=== PATIENT | male | born 1990 | race Caucasian/White ===

== ENCOUNTER 2020-01-03 13:33 | Outpatient (CLI) | payer MEDICARE, SELFPAY ==
--- NOTE | 2020-01-03 | XR_ITS ---
WS: [id number] FINGER LEFT TECHNIQUE: 3 views of the left First finger CLINICAL INFORMATION: THUMB PAIN COMPARISON: None. FINDINGS: Left thumb is normal in appearance. No acute fractures. XR/XR finger LT min 2V [id number] IMPRESSION: Normal left thumb
== END 2020-01-03 13:34 | disposition home or self-care (01) ==
LOC: RADOUTREAD 15:37
PROVIDERS: Visit Provider Physician Assistant
DX: Z76.89 Persons encountering health services in other specified circumstances (principal)

== ENCOUNTER 2023-08-27 08:33 | Outpatient (CLI) | payer MEDICARE, SELFPAY ==
--- NOTE | 2023-08-27 | ECG_ITS ---
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 Interpretive Statements NAME OF STUDY: EXERCISE SESTAMIBI STRESS TEST INDICATION: [Chest Pain, ] EXERCISE DATA: The patient was exercised by Shubham protocol. Baseline heart rate was 75 beats per minute. Baseline blood pressure was 198/131 millimeters of mercury. Target heart rate was 157 beats per minute. Maximum heart rate achieved was 166 which was 105% of the target heart rate. Maximum blood pressure was 216/134 millimeters of mercury. Total exercise time was 5 minutes and 6 seconds. Maximum METs achieved was 7. The reason for ending the test was completion of protocol. The patient complained of shortness of breath during the stress test, which then resolved at the end of the test. ELECTROCARDIOGRAM: BASELINE: Showed sinus rhythm, right bundle branch block, no significant ST-T changes at the baseline noted. [] EXERCISE: At the peak exercise level, [] No significant ST-T changes suggestive of ischemia noted. [] RECOVERY: During the recovery period, heart rate dropped appropriately. No significant ST-T changes in the recovery suggestive of ischemia noted. [] CONCLUSION: 1. Exercise capacity is fair 2. Heart rate response was appropriate 3. Blood pressure response was hypertensive 4. Symptoms not suggestive of ischemia. 5. Electrocardiogram portion of the stress test was not suggestive of ischemia however given baseline ekg finding of right bundle branch block sensitivity of exercise EKG is reduced. Electronically Signed On 09-01-2023 8:57:02 CDT by Yohan Robles M.D. [id number]
[2023-08-27 08:44] VITALS: BMI 51.0
--- NOTE | 2023-08-27 08:45 | NMCV_ITS ---
NM albert perf SPECT r/s* [id number] Rogelio Osborn Age: 33 Gender: M : 1990 Exam Date: 08/27/2023 09:48 Ordering Phys: Kiana Clark Technologist: RUDI Orlando Exam Location: [facility] Indications: CHEST PAIN STRESS TEST Please see separate stress test report in [employer] for full findings IMAGE PROTOCOL Rest/Stress 1 Exercise Day Radiopharmaceutical Dose (mCi) Administration Site Administered by Rest: Tc-99m 10.6 IV RUDI Castrejon Sestamidebora Stress:Tc-99m 33.0 IV RUDI Castrejon Sestamibi Rest: 27-Aug-2023 60 Discovery 630 Stress: 27-Aug-2023 30 Discovery 630 Radiopharmaceutical was injected at 85 % maximum heart rate. Images obtained in supine and prone position. SPECT RESULTS Technical Quality: Excellent Raw Data Analysis: Normal Image Corrections: No attenuation or motion correction applied Summed Stress Score: 4 Summed Rest Score: 1 Summed Difference Score: 4 PERFUSION FINDINGS There is a medium sized, mostly reversible perfusion defect noted in inferolateral wall. This is consistent with medium sized area of ischemia in left circumflex artery territory. FUNCTIONAL RESULTS (calculated via Gated SPECT) Stress Image LV EF (%): 51 Stress EDV (mL):189 TID: 0.95 Stress ESV (mL):93 FUNCTIONAL FINDINGS: There is normal left ventricular systolic function. IMPRESSIONS 1. Abnormal myocardial perfusion imaging with with medium sized area of ischemia seen in the left circumflex artery territory. 2. LV systolic function is normal Yohan Robles MD (Electronically Signed) Final Date: 31 August 2023 12:24 S
[2023-08-27] MEDS: metoprolol tartrate 1 mg/1 mL SDV 5 mL 5 MG IV (10:51)
[2023-08-27 11:38] VITALS: BP 178/90; PULSE 86
== END 2023-08-27 08:34 | disposition home or self-care (01) ==
LOC: CDL 08:34
PROVIDERS: PCP Physician Assistant; Visit Provider Physician Assistant
DX: R93.1 Abnormal findings on diagnostic imaging of heart and coronary circulation (principal); R07.9 Chest pain, unspecified
CPT/HCPCS: 36415; 78452; 93017; 96374; A9500; J3490

== ENCOUNTER → 2023-10-06 09:53 | Outpatient (BNVA) | payer MEDICARE, SELFPAY | PROVIDERS: PCP Physician Assistant; Referring Provider Physician Assistant; Visit Provider Internal Medicine Cardiovascular Disease | DX: R94.39 Abnormal result of other cardiovascular function study (principal); I10 Essential (primary) hypertension; E78.5 Hyperlipidemia, unspecified; E11.9 Type 2 diabetes mellitus without complications; Z79.84 Long term (current) use of oral hypoglycemic drugs; Z90.49 Acquired absence of other specified parts of digestive tract; Z96.21 Cochlear implant status | CPT/HCPCS: 99204 ==

== ENCOUNTER 2023-10-14 08:18 | Outpatient (CLI) | payer MEDICARE, SELFPAY ==
[2023-10-14] VITALS (17 sets, daily range): BP systolic 142–225; BP diastolic 73–138; PULSE 77–101; RESP 10–24; TEMP 36.8; O2SAT 96–100; BMI 51.5
--- NOTE | 2023-10-14 07:30 | XACV_ITS ---
Exam Room: 2 Ht: 178 cm Wt: 163 kg BSA: 2.93 m2 Gender: Male : 1990 Any Known Allergies: No known allergies Exam Priority: Routine Procedure(s): Procedure Description: Diagnostic procedure Procedure Description: Left Heart Catheterization Procedure Description: Left ventriculography Procedure Description: Coronary Angiography Diagnostic Cath Status: Elective Diagnostic Findings * Coronary angiography shows right dominance. * No disease noted in the short Left Main and right coronary artery. * Minor luminal irregularity noted in circumflex artery. * Medium calibre left anterior descending artery with distal 50% stenosis. Conclusions 1. Distal left anterior descending with 50% stenosis. 2. Normal left ventricular systolic function. Ejection fraction of 65%. Recommendations * Continue current medical management and risk factor modification. LV EDP: 27 mmHg Ventriculography Ejection Fraction: 65.0 % Pressures Phase:Rest AO : 145 / 121 ( 135 ) @ 9:32:00 AM 143 / 107 ( 126 ) @ 9:34:00 AM 151 / 111 ( 132 ) @ 9:37:00 AM 142 / 106 ( 125 ) @ 9:40:00 AM 196 / 112 ( 147 ) @ 9:48:00 AM 197 / 89 ( 135 ) @ 9:48:00 AM LV : 204 / -1 / 21 @ 9:47:00 AM 204 / 4 / 27 @ 9:48:00 AM 205 / 5 / 26 @ 9:48:00 AM Valves Phase:DefaultPhase AV : 9.0 @ 10:00:10 AM AV Mean Gradient: 28.0 @ 10:00:10 AM 28.0 @ 10:00:10 AM Clinical Evaluation EBL: 5mL-10mL Procedural Details Procedure Consent Obtained. Pre-Procedure Time Out. Identified patient by full name and date of as verbalized by the patient/guarantor. Does the consent match the physician's order: Yes. Accurate & Complete Informed Consent: Yes. Inpatient/Outpatient History & Physical on Chart: Yes. If H&P is completed, is and addenduem needed: No; If yes, is the addendum complete: N/A. Visualize and Verify Site with Patient/Guarantor: N/A. Relevant Radiology Images available: Yes. Pre-op teaching completed and patient verbalized understanding. The risks, benefits, and alternatives of sedation and/or procedure were discussed by physician. The patient agrees to continue. Procedure started. Current Diagnosis : Chest Pain. [facility] Clinical Fraility Score: 3: Managing Well. 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 Chest Pain Symptom Assessment: Atypical Angina. Correct patient, site and procedure confirmed by cath team. Current diagnosis: Chest Pain. PERRLA. Strong, equal hand laboratory animal caretaker bilaterally. Lungs clear x 5 lobes. IV Site on Arrival: 20 gauge in the left anticubital. IV Fluids: 0.9% NaCl at KVO. 0 mL infused prior to recyclable materials distributor. Pre Procedural Pulses: bilateral dorsalis pedis was 3+. Pre Procedural Pulses: bilateral posterior tibial was 3+. Pre Procedural Pulses: bilateral radial was 3+. Oxygen started at 2liters/min via nasal canula. right groin was prepped with chloroprep then draped in the usual sterile fashion. right radial was prepped with chloroprep then draped in the usual sterile fashion. Baseline sample Acquired. HR: 88 BPM. Physician arrived. Physician scrubbed in. Immediate Pre-Procedure Time Out. Correct Patient: Yes; Correct Procedure: Yes; Correct Site: Yes; Correct Patient Position: Yes; Correct Supplies: Yes; Dried Flammable Prep: Yes; Blood Products Available: N/A;. Lidocaine 1% infiltrated to the right radial. Arterial access obtained. A 5 ukrainian TIG catheter in over wire. Multiple views taken of left coronary artery. Physician review of cine films. Catheter redirected to the RCA. Multiple views taken of right coronary artery. Catheter removed over the exchange wire. A 5 ukrainian Angled Pig catheter in over wire. EDP Sample taken: LV 204/-2,21; HR: 97 BPM; SpO2: 100%. LV gram performed in LONGO @ 10 mL/second for a total of 30 mL. EDP Sample taken: LV 204/4,27; HR: 94 BPM; SpO2: 99%. Pullback taken: LV 205/5,26; AO 196/112(147); Mean: 28mmHg, Peak to Peak: 9mmHg, SEP: 8sec/min; HR: 95 BPM; SpO2: 100%. Catheter removed over the exchange wire. Physician scrubbed out. Dr. Nguyen called to review films. Dr. Nguyen arrived. A TR Band was successful obtaining hemostatsis at the Right Radial artery insertion site. Vital chart was stopped. Post Procedure: Pulses reassessed and unchanged. PERRLA. Strong, equal hand laboratory animal caretaker bilaterally. No VTE prophylaxis required. Medication's Wasted: Nitro = 49.8 mcg. Medication's Wasted: Lidocaine 1% = 3 mL. Medication's Wasted: Heparin = 1000 units. Total IV fluids: 38 mL. Complications: None. Estimated blood loss: 5mL-10mL. Responsiveness - Normal response to verbal stimuli; alert and oriented, PERRLA. Airway - Unaffected, no intervention required; spontaneous ventilation. Circulation: W/N/L, pulses unchanged. Nausea/Vomiting: No. Procedure completed. Patient transferred by wheelchair to CPRU. Access Site Site: Right Radial artery Sheath Size: 6 Fr Hemostasis Method: TR Band Hemostasis Success: Successful Procedure Medications Start: 9:19 AM Stop: 9:19 AM Medication: Hydralazine Amount: 20 mg Route: I.V. Start: 9:23 AM Stop: 9:23 AM Medication: Versed Amount: 1 mg Route: I.V. Start: 9:23 AM Stop: 9:23 AM Medication: Fentanyl Amount: 50 mcg Route: I.V. Start: 9:24 AM Stop: 9:24 AM Medication: Versed Amount: 1 mg Route: I.V. Start: 9:28 AM Stop: 9:28 AM Medication: Nitrogylcerin Amount: 200 mcg Route: I.A. Start: 9:28 AM Stop: 9:28 AM Medication: Fentanyl Amount: 50 mcg Route: I.V. Start: 9:30 AM Stop: 9:30 AM Medication: Heparin Amount: 5000 units Route: I.V. Start: 9:34 AM Stop: 9:34 AM Medication: Versed Amount: 1 mg Route: I.V. Start: 9:50 AM Stop: 9:50 AM Medication: Versed Amount: 1 mg Route: I.V. I, the attending physician, have reviewed and verified all procedure medications. Yes, all medications given per verbal order History/Risk Factors Hypertension: Yes Dyslipidemia: Yes Peripheral Arterial Disease (PAD): No Myocardial Infarction (AK): No Obesity: Yes Renal Disease: No Tobacco Use: Never Prior Interventions PCI: No CABG: No Valve Surgery: No Report Signatures Finalized by Gemini Henderson MD on 10/26/2023 10:48 AM
[2023-10-14] MEDS: diphenhydrAMINE 50 mg Capsule PO (08:30)
[2023-10-14 08:41] LABS: Basophils # 0.1 10^3/uL (0.0-0.1); Basophils % 0.5 %; Eosinophils # 0.4 10^3/uL (0.0-0.8); Eosinophils % 3.8 %; Hematocrit 49.6 % (37-53); Lymphocytes # 2.7 10^3/uL (0.8-4.8); Lymphocytes % 23.8 %; Mean Corpuscular HGB Conc 33.1 g/dL (30-55); Mean Corpuscular Hemoglobin 26.8 pg (27-33); Monocytes # 0.9 10^3/uL (0.2-0.9); Monocytes % 7.6 %; Neutrophils # 7.11 10^3/uL (1.8-7.7); Neutrophils % 63.8 %; Nucleated Red Blood Cells % 0 %; Platelet Count 307 10^3/cmm (157-399); Red Blood Count 6.12 10^6/uL (3.85-5.65); White Blood Count 11.16 10^3/uL (3.29-11.43)
[2023-10-14 08:55] LABS: Anion Gap 15.9 (5-19); Blood Urea Nitrogen 11 mg/dL (6-20); Calcium 9.7 mg/dL (8.5-10.5); Carbon Dioxide 28 mmol/L (22-29); Chloride 100 mmol/L (98-107); Glucose 128 mg/dL (65-115); Osmolality Calculated 291 mOsm/kg (285-295); Potassium 3.9 mmol/L (3.5-5.1); Sodium 140 mmol/L (136-145)
--- NOTE | 2023-10-14 09:10 | P.HPUD_ITS ---
Surgery/Procedure H&P Update DATE OF PROCEDURE: October 14, 2023 DATE H&P PERFORMED: 10/06/23 H&P UPDATE INFORMATION: I have reviewed H&P completed within last 30 days, I have examined patient prior to procedure and No changes to prior documentation PREOP DIAGNOSIS: Abnormal stress test, chest pain PRIMARY INDICATION FOR PROCEDURE: Abnormal stress test, chest pain PLANNED PROCEDURE: Operation Date: 10/14/23 08:30 Proposed Procedures p [facility] [id number],R94.39(Left) - Gemini Henderson MD PATIENT REASSESSED PRIOR TO SEDATION, WITH NO CHANGE NOTED: Yes PHYSICAL EXAM: alert, oriented x 3, clear to auscultation bilaterally and regular rate & rhythm AIRWAY EVAL/ANESTHESIA PLAN: normal airway, ASA III, Monitored Anesthesia, Local Anesthesia, Risks, benefits & alternatives of sedation and/or procedure discussed and Patient agrees to continue as planned
[2023-10-14] MEDS: amlodipine 5 mg Tablet PO (10:44)
[2023-10-14] MEDS: carvedilol 12.5 mg Tablet 25 MG PO (10:44)
--- NOTE | 2023-10-14 10:46 | SUR.PHASEI ---
Patient c/o pain in the right radial access site. There is no s/s of bleeding or hematoma. The pain is coming from the band application. He rates it at 7/10 in intensity on the pain scale. The band has 16 ml of air in it and the distal pulses are present so circulation is good. I infomed the patient i would give some prn pain meds. Awaiting arrival from pharmacy.
[2023-10-14] MEDS: acetaminophen 325 mg Tablet 650 MG PO (10:51)
== END 2023-10-14 14:15 | disposition home or self-care (01) ==
LOC: CCL 09:59 → CSU 12:01
PROVIDERS: PCP Physician Assistant; Visit Provider Internal Medicine Cardiovascular Disease
DX: I25.10 Atherosclerotic heart disease of native coronary artery without angina pectoris (principal); R94.39 Abnormal result of other cardiovascular function study; R07.9 Chest pain, unspecified; I10 Essential (primary) hypertension; E78.5 Hyperlipidemia, unspecified; E66.9 Obesity, unspecified; Z68.43 Body mass index [BMI] 50.0-59.9, adult
CPT/HCPCS: 36415; 80048; 85025; 93458; 96361; 96365; 99152; 99153; C1769; C1887; C1894; J0360; J1644; J2250; J3010; J3490; J7030; Q0163; Q9967

== ENCOUNTER → 2023-10-21 08:33 | Outpatient (BNVA) | payer MEDICARE, SELFPAY | PROVIDERS: PCP Physician Assistant; Visit Provider Nurse Practitioner Family | DX: I10 Essential (primary) hypertension (principal) | CPT/HCPCS: 36415; 80048; 99214 ==

== ENCOUNTER → 2023-11-19 08:25 | Outpatient (BNVA) | payer MEDICARE, SELFPAY | PROVIDERS: PCP Physician Assistant; Visit Provider Nurse Practitioner Family | DX: I10 Essential (primary) hypertension (principal) | CPT/HCPCS: 99213 ==

== ENCOUNTER → 2024-02-18 13:58 | Outpatient (BNVA) | payer MEDICARE, SELFPAY | PROVIDERS: PCP Physician Assistant; Visit Provider Family Medicine | DX: E11.9 Type 2 diabetes mellitus without complications (principal); I10 Essential (primary) hypertension | CPT/HCPCS: 80053; 80061; 83036; 84439; 84443; 85025 ==

== ENCOUNTER → 2024-05-23 14:53 | Outpatient (BNVA) | payer MEDICARE, SELFPAY | PROVIDERS: PCP Family Medicine; Visit Provider Internal Medicine | DX: R94.39 Abnormal result of other cardiovascular function study (principal); I10 Essential (primary) hypertension; E78.5 Hyperlipidemia, unspecified; E11.9 Type 2 diabetes mellitus without complications; Z90.49 Acquired absence of other specified parts of digestive tract; Z96.21 Cochlear implant status; Z79.84 Long term (current) use of oral hypoglycemic drugs | CPT/HCPCS: 99214 ==

== ENCOUNTER → 2025-01-05 09:17 | Outpatient (BNVA) | payer OTHER, SELFPAY | PROVIDERS: PCP Family Medicine; Visit Provider Family Medicine | DX: E11.9 Type 2 diabetes mellitus without complications (principal) | CPT/HCPCS: 80053; 83036 ==

== ENCOUNTER → 2025-03-22 10:05 | Outpatient (BNVA) | payer MEDICARE, SELFPAY | PROVIDERS: PCP Family Medicine; Visit Provider Family Medicine | DX: J02.9 Acute pharyngitis, unspecified (principal) | CPT/HCPCS: 87071; 87880 ==

== ENCOUNTER → 2025-07-25 14:11 | Outpatient (BNVA) | payer MEDICARE, SELFPAY | PROVIDERS: PCP Family Medicine; Visit Provider Nurse Practitioner Family | DX: L91.8 Other hypertrophic disorders of the skin (principal); L73.8 Other specified follicular disorders; D48.5 Neoplasm of uncertain behavior of skin; L30.9 Dermatitis, unspecified | CPT/HCPCS: 11102; 99203 ==

== ENCOUNTER → 2025-08-07 15:12 | Outpatient (BNVA) | payer MEDICARE, SELFPAY | PROVIDERS: PCP Family Medicine; Visit Provider Family Medicine | DX: I10 Essential (primary) hypertension (principal); E11.9 Type 2 diabetes mellitus without complications; E55.9 Vitamin D deficiency, unspecified | CPT/HCPCS: 80053; 80061; 82306; 82607; 83036; 84439; 84443; 85025 ==

== ENCOUNTER → 2025-10-03 13:11 | Outpatient (BNVA) | payer MEDICARE, SELFPAY | PROVIDERS: PCP Family Medicine; Visit Provider Nurse Practitioner Family | DX: L57.0 Actinic keratosis (principal); L91.8 Other hypertrophic disorders of the skin; L73.8 Other specified follicular disorders; D48.5 Neoplasm of uncertain behavior of skin | CPT/HCPCS: 11102; 99213 ==